=== PATIENT | female | born 1965 | race Two or more races ===

== ENCOUNTER 2021-12-07 06:12 | Day surgery (SDC) | payer OTHER ==
[~2021-12-07] VITALS: Ht 167.6 cm; Wt 59.0 kg
[~2021-12-07 06:12] MED LIST: ZOLOFT25 MG PO
[2021-12-07] MEDS ORDERED: NEURONTIN300 MG PO (09:56)
[2021-12-07] MEDS ORDERED: PERCOCET 5-3251 EACH PO (09:57)
[2021-12-07] MEDS ORDERED: KETO10TA2 PO (09:57)
== END 2021-12-07 12:20 | disposition home or self-care (01) ==
LOC: CIR.AMB 06:12
PROVIDERS: ATTEND Surgery
DX: K64.8 Other hemorrhoids (principal); Z20.822 Contact with and (suspected) exposure to COVID-19

== ENCOUNTER 2023-12-17 08:34 | Outpatient (CLI) | payer OTHER ==
[~2023-12-17 08:34] MED LIST changes: +KETO10TA2 PO; +NEURONTIN300 MG PO; +PERCOCET 5-3251 EACH PO
== END 2023-12-17 08:50 | disposition home or self-care (01) ==
LOC: SONOGRAMA 08:34
PROVIDERS: ATTEND Obstetrics & Gynecology Gynecology
DX: N60.11 Diffuse cystic mastopathy of right breast (principal); N60.12 Diffuse cystic mastopathy of left breast; R87.810 Cervical high risk human papillomavirus (HPV) DNA test positive; R68.82 Decreased libido; Z80.3 Family history of malignant neoplasm of breast; L28.0 Lichen simplex chronicus; N84.0 Polyp of corpus uteri